=== PATIENT | female | born 1965 | race Caucasian/White ===

== ENCOUNTER → 2016-09-08 | Outpatient (CLI) | payer BC ==
[~2016-09-08] MED LIST: CRFUDL PO; CZR25 PO; LEVO100T7 PO; MULT-506 PO; PANT40TA PO
== END | disposition home or self-care (01) ==
LOC: C.LABSPEC 12:39
PROVIDERS: ATTEND Internal Medicine
DX: R31.9 Hematuria, unspecified (principal)

== ENCOUNTER → 2016-12-23 | Outpatient (CLI) | payer BC ==
--- NOTE | 2016-12-23 13:33 | MAMMOGRAPHY REPORT ---
UNILATERAL RIGHT DIGITAL DIAGNOSTIC MAMMOGRAM TOMOSYNTHESIS WITH CAD AND TARGETED RIGHT ULTRASOUND: 12/23/2016 CLINICAL HISTORY: The patient reports intermittent pain which radiates from the armpit to her nipple . She also reports a possible lump/thickening in the right breast. TECHNIQUE: Breast tomosynthesis in addition to standard 2D mammography was performed. Current study was also evaluated with a Computer Aided Detection (CAD) system. Right CC and MLO 2-D and tomosynt hesis images were obtained. COMPARISON: Comparison is made to exams dated: 07/14/2016 mammogram, 07/12/2015 mammogram, 07/11/20 14 mammogram, 07/10/2013 mammogram, 07/07/2012 mammogram, and 07/07/2011 mammogram - [facility]. BREAST COMPOSITION: The tissue of the right breast is heterogeneously dense, which may obscure smal l masses. FINDINGS: A scar marker gagnon the site of pain in the right upper outer quadrant. There are no johnie picious masses, calcifications, or areas of architectural distortion noted in the right breast. The re has been no significant interval change compared to prior exams. Nodular asymmetry in the right lateral breast seen on the cc view is stable dating back to at least the 2010 exam. Targeted ultrasound was performed of the area of pain pointed out by the patient, in the right axill merna region extending to the right upper outer quadrant and right subareolar region. Sonographically normal tissue is seen, without evidence of a mass or other suspicious sonographic abnormality. Tar geted ultrasound was performed of the area of the palpable lump pointed out by the patient, in the r ight breast at 10:00, approximately 7 cm from the nipple. No suspicious mass or other suspicious so nographic abnormalit is evident at this site. IMPRESSION: ACR BI-RADS CATEGORY 2: BENIGN, TARGETED ULTRASOUND ACR BI-RADS CATEGORY 2: BENIGN No suspicious mammographic or sonographic abnormality to explain intermittent right breast pain and possible right breast lump. There is no mammographic or targeted sonographic evidence of malignancy . Recommend clinical follow-up, and recommend routine bilateral screening mammograms which are due June 2017. The patient has been verbally notified of the results. Approximately 10% of breast cancers are not detected with mammography. A negative mammographic repor t should not delay biopsy if a clinically suggestive mass is present. Cori Santos M.D. ah/:12/23/2016 09:37:58 Clinical Laboratory Director: Sasha PATTON)(Jaycee), [facility] letter sent: Normal 1/2 BI-RADS Code: ACR BI-RADS Category 2: Benign Ultrasound BI-RADS: ACR BI-RADS Category 2: Benign
== END | disposition home or self-care (01) ==
LOC: C.MAMM 08:54
PROVIDERS: ATTEND Obstetrics & Gynecology
DX: N64.4 Mastodynia (principal)

== ENCOUNTER → 2017-03-26 | Outpatient (CLI) | payer BC | END | disposition home or self-care (01) | LOC: C.LABSPEC 16:42 | PROVIDERS: ATTEND Physician Assistant Medical | DX: R10.2 Pelvic and perineal pain (principal) ==

== ENCOUNTER → 2017-08-02 | Outpatient (CLI) | payer BC ==
--- NOTE | 2017-08-03 07:48 | MAMMOGRAPHY REPORT ---
BILATERAL DIGITAL SCREENING MAMMOGRAM TOMOSYNTHESIS WITH CAD: 08/02/2017 CLINICAL HISTORY: Routine screening. Patient has no complaints. TECHNIQUE: Breast tomosynthesis in addition to standard 2D mammography was performed. Current study was also evaluated with a Computer Aided Detection (CAD) system. COMPARISON: Comparison is made to exams dated: 12/23/2016 ultrasound, 12/23/2016 mammogram, 07/14/2016 m ammogram, 07/12/2015 mammogram, 07/11/2014 mammogram, and 07/07/2012 mammogram - [facility]. BREAST COMPOSITION: The tissue of both breasts is heterogeneously dense, which may obscure small mas ses. FINDINGS: The parenchymal pattern is unchanged. No developing mass, architectural distortion or clus ter of suspicious microcalcifications is seen in either breast. IMPRESSION: ACR BI-RADS CATEGORY 2: BENIGN There is no mammographic evidence of malignancy. A 1 year screening mammogram is recommended. The pa tient will receive written notification of the results. Approximately 10% of breast cancers are not detected with mammography. A negative mammographic report should not delay biopsy if a clinically suggestive mass is present. Silvana Candelario M.D. ay/:08/02/2017 08:57:01 Internal Consultant: Yajaira Alcaraz, [facility] letter sent: Normal 1/2 BI-RADS Code: ACR BI-RADS Category 2: Benign
== END | disposition home or self-care (01) ==
LOC: C.MAMM 08:32
PROVIDERS: ATTEND Obstetrics & Gynecology
DX: Z12.31 Encounter for screening mammogram for malignant neoplasm of breast (principal)

== ENCOUNTER → 2017-08-27 | Outpatient (CLI) | payer BC | END | disposition home or self-care (01) | LOC: C.PAPS 14:32 | PROVIDERS: ATTEND Obstetrics & Gynecology | DX: Z01.419 Encounter for gynecological examination (general) (routine) without abnormal findings (principal) ==

== ENCOUNTER 2017-10-23 08:51 | Emergency (ER) | payer BC ==
[~2017-10-23] VITALS: Ht 154.9 cm; Wt 72.3 kg
[2017-10-23 08:53] VITALS: TEMP 36.3; Ht 154.9 cm; Wt 72.3 kg
[2017-10-23] MEDS ORDERED: XYLOCAINE 1%/SOD BICARB 20 ML VIAL INFIL ONE (09:30)
--- NOTE | 2017-10-23 09:45 | DIAGNOSTIC IMAGING REPORT ---
HEAD WITHOUT CONTRAST (CT) CLINICAL HISTORY: 52 years-old Female presenting with fall in shower. TECHNIQUE: Multidetector CT imaging of the head was performed without the use of intravenous contrast. IV contrast: None. A dose lowering technique was used consistent with the principles of ALARA (as low as reasonably achievable). COMPARISON: Brain MR from 2009. CT DOSE (mGy.cm): The estimated cumulative dose is 919.[address] cervical spine. FINDINGS: Electrotype Molder topogram: Anterior cervical fusion hardware noted. Ventricles and sulci normal in size. Brain parenchyma normal in appearance with preserved huang-white differentiation. No mass effect or midline shift. No hemorrhage or acute territorial infarct. No extra-axial fluid collection. Paranasal sinuses and mastoid air cells clear. Calvarium intact. IMPRESSION: 1. No acute intracranial abnormality. Electronically signed by: Saulo Marte M.D. 10/23/2017 9:43 AM Dictated Date/Time: 10/23/2017 9:41 AM
--- NOTE | 2017-10-23 09:49 | DIAGNOSTIC IMAGING REPORT ---
CERVICAL SPINE W/O CLINICAL HISTORY: 52 years-old Female presenting with neck pain, injury of the left forehead, left eyebrow laceration, nasal bleed. TECHNIQUE: Multidetector CT of the cervical spine was performed without the use of intravenous contrast. IV contrast: None. A dose lowering technique was used consistent with the principles of ALARA (as low as reasonably achievable). COMPARISON: CT from 08/28/2014. CT DOSE (mGy.cm): The estimated cumulative dose is 919.88 mGy.cm. FINDINGS: Dipper And Drier topogram: Anterior cervical fusion hardware. Straightening of normal cervical lordosis likely positional. Postsurgical changes of anterior cervical discectomy and fusion of C6-7. No hardware complication. Osseous fusion across these levels is noted predominantly centrally. Remaining nonoperative vertebral bodies demonstrate normal height and alignment. Mild intervertebral disc height loss at C5-6 with a small disc osteophyte complex. No significant posterior bony spurring. No osseous neural foraminal narrowing. No acute fracture or malalignment. Lung apices clear. Paraspinal soft tissues within normal limits allowing for noncontrast technique. IMPRESSION: 1. No acute osseous injury of the cervical spine. 2. Postsurgical changes of anterior cervical discectomy and fusion of C6-7. Electronically signed by: Saulo Marte M.D. 10/23/2017 9:48 AM Dictated Date/Time: 10/23/2017 9:45 AM
--- NOTE | 2017-10-23 09:52 | DIAGNOSTIC IMAGING REPORT ---
FACIAL BONES-MXILLOFAC WITHOUT CLINICAL HISTORY: 52 years-old Female presenting with L infraorbital pain. TECHNIQUE: Multidetector CT of the face was performed without the use of intravenous contrast. IV contrast: None. A dose lowering technique was used consistent with the principles of ALARA (as low as reasonably achievable). COMPARISON: 01/25/2010. CT DOSE (mGy.cm): The estimated cumulative dose is 919.[address] cervical spine and CT head. FINDINGS: Fire Captain topogram: Anterior cervical fusion hardware. Paranasal sinuses and mastoid air cells clear. Orbits intact. Skull base intact. Temporomandibular joints and mandible intact. Nasal bones intact. Minimal rightward deviation of the bony nasal septum without evidence of fracture. Soft tissues of the face demonstrate minimal contusion and the lateral left periorbital region. Associated soft tissue emphysema in this region likely suggests the presence of a laceration. No subjacent osseous injury. Upper cervical spine normal. IMPRESSION: No acute osseous injury of the face. Electronically signed by: Saulo Marte M.D. 10/23/2017 9:51 AM Dictated Date/Time: 10/23/2017 9:48 AM
[2017-10-23] MEDS ORDERED: HYDROCODONE/ACETAMIN 5/325MG TAB PO PRN (10:00)
[2017-10-23] MEDS ORDERED: SUCR5SUS PO (10:30)
[2017-10-23 10:37] VITALS: BP 150/85; PULSE 61; O2SAT 98
--- NOTE | 2017-10-23 17:02 | EMERGENCY ROOM VISIT NOTE ---
ED Visit Note First contact with patient: 08:59 Chief complaint: Fall at home in bathtub. Left eyebrow laceration HPI: This 52-year-old white female presents for evaluation of a laceration in her left eyebrow. The patient was attempting to get in the bathtub this morning to take a shower. Her daughter had taken a bath last night with bubblebath. She slipped on the bathtub floor and fell onto her left side, striking her left face on the wall. She states there was a pop in her neck and now her neck is quite painful. She has a history of previous cervical spine surgery. Bleeding was controlled with pressure. She denies any numbness, tingling, or loss of consciousness. No nausea or vomiting. Her neck is painful to move. She denies any pain in her extremities. She has been ambulatory. No other complaints. Tetanus is unknown. Pain is 7/10. Her accompanies her today. Supplemental sheet was reviewed. Previous surgeries: Bilateral total hip arthroplasties, cholecystectomy Medical history: Significant for osteoarthritis, hypothyroidism, GERD Current Medications: Reviewed and found in patient's chart Allergies: Chlorhexidine, morphine, moxifloxacin, penicillin, Bactrim, adhesives Tetanus: Unknown Family History: Significant for osteoarthritis. Parents are living. Social History: Patient is . No tobacco use, no EtOH use. REVIEW OF SYSTEM: HEENT: No dizziness, visual problems, hearing loss, or tinnitus. There is no difficulty swallowing and no oral lesions are present. LYMPH: No adenopathy. PULMONARY: No cough, shortness of breath, sputum production or hemoptysis. CARDIOVASCULAR: No chest pain, palpitations, shortness of breath or peripheral edema. GASTROINTESTINAL: No diarrhea, constipation, nausea, vomiting, or abdominal pain. GENITOURINARY: No dysuria, frequency, urgency or nocturia. NEUROLOGIC: No weakness, muscle tenderness, epilepsy or history of neurological problems. MUSCULOSKELETAL: No history of joint tenderness/swelling. Positive history of arthritis and arthralgias. SKIN: No rashes or lesions. PSYCHIATRIC: No history of depression or mental illness. ENDOCRINE: No history of diabetes, thyroid disorders, or abnormal hair growth. Physical Exam: Vitals: Afebrile. Reviewed and filed in patient's chart. Mildly hypertensive. General: Well-developed, well-nourished, middle-aged white female, in no acute distress. Obvious discomfort. She is sitting on the bed. Alert and oriented. Skin: Warm and dry with good turgor. No rashes. No ecchymosis or erythema. The patient is not diaphoretic. No abrasions. The patient has a 2.5 cm laceration present in the left eyebrow. It is horizontal. No foreign material is visible. HEENT: Normocephalic atraumatic. Eyes PERRLA, EOMI. No conjunctiva or scleral injection. Ears TMs intact bilaterally with good light reflexes. No erythema or bulging. No hemotympanum. Canals are patent. Nares patent bilaterally without turbinate enlargement. No significant drainage. Dried epistaxis in the left nares. There is discomfort with palpation over the left inferior orbital bones. No palpable crepitus or defect. Oropharynx without erythema or exudate. Uvula midline, oral mucosa moist. No lesions present. Lymphatics are palpated without anterior or posterior chain enlargement or tenderness. Musculoskeletal: Patient has discomfort with palpation over the cervical spine and left paraspinal musculature. No pain with palpation over the lumbar or thoracic spine. No pain with palpation on the right side of her neck. Supple motion of the hips, knees, and ankles bilaterally. No indication for dislocation. Intact motor function of the upper extremities at the shoulders, elbows, and wrists. Symmetric strength. Neurologic: Gross sensation is intact across the upper and lower extremities by soft touch. CT scan imaging of the head, face, and cervical spine were obtained. These were reviewed by me and read by radiology. No evidence for acute fracture, intracranial bleed, or other abnormality. Hardware remains in place in her cervical spine. Impression: Fall into empty tub. 2.5 cm left eyebrow laceration. Left neck strain Procedure: Informed oral consent was obtained for repair. Left eyebrow was prepped with Betadine and draped with a sterile towel. Area was anesthetized using 4 mL 1% plain buffered lidocaine in a direct infiltration. Thorough inspection was performed. Wound was irrigated using normal sterile saline under jet spray lavage. Wound was closed using 5-0 nylon. 4 [id number]-[id number] sutures were placed. Excellent wound edge approximation was achieved. Hemostasis was achieved. Plan: Patient was educated regarding today's findings. Conservative care measures were discussed. Cleanse the wound daily with soap and water and reapply a small amount of bacitracin. Ice and elevate intermittently as needed for discomfort. Tylenol and ibuprofen every 6 hours as needed for pain. Wound care handout was provided. Sutures out in 6-8 days. She may shower. Avoid soaking or swimming for two weeks. Return to the ER for any acute changes or signs of infection. She was given a tablet of Viper 5 mg while in the ED. She understands that she may be more sore tomorrow than today. She was reassured that her imaging studies were normal. Her elevated BP is likely situational. She should have it rechecked by her PCP. She will also contact her PCP about her tetanus status. Problem List Medical Problems: (1) Cervical radiculopathy Status: Chronic (2) Facial abrasion Status: Resolved (3) GERD (gastroesophageal reflux disease) Status: Chronic (4) Herniated cervical disc Status: Resolved (5) Herniation of cervical intervertebral disc with radiculopathy Status: Resolved (6) Neck pain Status: Resolved (7) Spinal stenosis Status: Chronic Surgical Problems: (1) History of hip replacement Status: Resolved (2) Hx of cholecystectomy Status: Resolved Current/Historical Medications Scheduled Levothyroxine Sodium (Levothyroxine Sodium), 100 MCG PO QAM Losartan Potassium (Losartan Potassium), 25 MG PO QAM Multivitamin (Multivitamin), 1 TAB PO DAILY Pantoprazole (Protonix), 40 MG PO DAILY Sucralfate (Carafate), 1 GM PO ACHS Allergies Coded Allergies: Chlorhexidine (Verified Allergy, Intermediate, itching and erythema , ) Sulfamethoxazole w/Trimethoprim (Verified Allergy, Intermediate, rash/ conjunctivitis, 10/23/17) Adhesives (Verified Allergy, Unknown, blistering, 10/23/17) AFTER HIP SURGERY REACTION TO SURGICAL TAPE ON INCISION Penicillins (Verified Allergy, Unknown, SWELLING, RASH, conjunctivitis, and hives, 10/23/17) Morphine (Verified Adverse Reaction, Unknown, ITCHING, 10/23/17) Moxifloxacin (Unverified Adverse Reaction, Unknown, joint pain per cardio note , 10/23/17) Vital Signs Date Time Temp Pulse Resp B/P (MAP) Pulse Ox O2 Delivery O2 Flow Rate FiO2 10/23/17 10:37 61 18 150/85 98 Room Air 10/23/17 09:28 72 18 174/85 100 Room Air 10/23/17 09:03 69 18 167/99 100 Room Air 10/23/17 08:53 36.3 74 18 163/98 100 Room Air Medications Administered Medications (Trade) Dose Ordered Sig/Audra Route Start Time Stop Time Status Last Admin Dose Admin Acetaminophen/ Hydrocodone Bitart (Viper 5/325 Tab) 1 tab NOW PRN PO 10/23/17 10:00 10/23/17 11:06 DC 10/23/17 10:36 1 TAB Departure Information Impression Primary Impression: Neck muscle strain Additional Impressions: Fall in (into) shower or empty bathtub, initial encounter Left eyebrow laceration 2.5 cm Dispostion Home / Self-Care Condition [employer]IR Forms HOME CARE DOCUMENTATION FORM, MOTRIN USE, TYLENOL USE, WOUND CARE INSTRUCTIONS, IMPORTANT VISIT INFORMATION Patient Instructions My [facility] Additional Instructions Cleanse the wound daily with soap and water Avoid swimming or soaking for 2 weeks you may shower and wash your face Tylenol and Motrin every 6 hours as needed for discomfort Sutures out in 6-8 days Return to the ED for any acute changes or signs of infection Gentle stretching daily You may be more sore tomorrow than today Follow up with your PCP for any worsening symptoms or return to the ED Problem Qualifiers
== END 2017-10-23 10:53 | disposition home or self-care (01) ==
LOC: C.EDB 08:53 → C.EDA 10:53
DX: S01.112A Laceration without foreign body of left eyelid and periocular area, initial encounter (principal); S16.1XXA Strain of muscle, fascia and tendon at neck level, initial encounter; W18.2XXA Fall in (into) shower or empty bathtub, initial encounter; Y93.E1 Activity, personal bathing and showering; Y92.002 Bathroom of unspecified non-institutional (private) residence as the place of occurrence of the external cause; M19.90 Unspecified osteoarthritis, unspecified site; E03.9 Hypothyroidism, unspecified; K21.9 Gastro-esophageal reflux disease without esophagitis; Z96.643 Presence of artificial hip joint, bilateral; Z88.8 Allergy status to other drugs, medicaments and biological substances; Z88.6 Allergy status to analgesic agent; Z88.1 Allergy status to other antibiotic agents; Z88.0 Allergy status to penicillin; Z88.2 Allergy status to sulfonamides; Z91.048 Other nonmedicinal substance allergy status; Z82.69 Family history of other diseases of the musculoskeletal system and connective tissue

== ENCOUNTER → 2017-11-17 | Outpatient (CLI) | payer BC ==
[~2017-11-17] MED LIST changes: -CRFUDL PO; +SUCR5SUS PO
[2017-11-17 12:32] LABS: BASO % 0.7 %; BASO ABS # 0.03 K/uL (0-0.2); EOS % 2.7 %; EOS ABS # 0.11 K/uL (0-0.5); HEMATOCRIT 39.8 % (37-47); HEMOGLOBIN 13.3 g/dL (12.0-16.0); IG# 0.01 K/uL (0.00-0.02); LYMPH % 34.2 %; LYMPH ABS # 1.37 K/uL (1.2-3.4); MEAN CELL VOLUME 92.6 fL (80-100); MEAN CORPUSCULAR HEMOGLOBIN 30.9 pg (25-34); MEAN CORPUSCULAR HGB CONC 33.4 g/dl (32-36); MEAN PLATELET VOLUME 9.3 fL (7.4-10.4); MONO % 8.2 %; MONO ABS # 0.33 K/uL (0.11-0.59); NEUT ABS # 2.16 K/uL (1.4-6.5); PLATELET COUNT 206 K/uL (130-400); RED CELL DISTRIBUTION WIDTH CV 13.3 % (11.5-14.5); RED CELL DISTRIBUTION WIDTH SD 44.5 fL (36.4-46.3); WHITE BLOOD COUNT 4.01 K/uL (4.8-10.8)
[2017-11-17 13:17] LABS: BLOOD UREA NITROGEN 14 mg/dl (7-18); CARBON DIOXIDE 30 mmol/L (21-32); CHOLESTEROL 235 mg/dl (0-200); CREATININE 0.96 mg/dl (0.60-1.20); GLUCOSE 89 mg/dl (70-99); POTASSIUM 4.1 mmol/L (3.5-5.1); SODIUM 138 mmol/L (136-145)
[2017-11-17 13:27] LABS: LDL CHOLESTEROL CALCULATED 123 mg/dl
== END | disposition home or self-care (01) ==
LOC: C.LABBFT 07:59
PROVIDERS: ATTEND Internal Medicine
DX: I10 Essential (primary) hypertension (principal); E03.9 Hypothyroidism, unspecified; Z13.6 Encounter for screening for cardiovascular disorders; R53.83 Other fatigue

== ENCOUNTER → 2017-12-17 | Outpatient (CLI) | payer BC ==
[~2017-12-17] MED LIST changes: +GADAVIST IV PRN
--- NOTE | 2017-12-17 14:16 | ECHOCARDIOGRAM REPORT ---
*NOTICE TO RECEIVING [employer] AGENCY This information is strictly Confidential and protected under [place] law. [place] law prohibits you from making any further disclosure of this information unless further disclosure is expressly permitted by the written consent of the person to whom it pertains or is authorized by law. A general authorization for the release of medical or other information is not sufficient for this purpose. Hospital accepts no responsibility if the information is made available to any other person, INCLUDING THE PATIENT. Interpretation Summary * Name: JAIR NEAL Study Date: 12/17/2017 12:59 PM * Patient Location: [facility] HR: 62 * : 1965 (M/d/yyyy) Gender: Female Height: 61 in * Age: 52 yrs Ethnicity: CA Weight: 153 lb * Ordering Physician: ABEL LAND MD * Performed By: Rebeka Echols RDCS * * Reason For Study: NEUROLOGIC GAIT DISFUNCTION * BSA: 1.7 m2 * This was essentially a normal study. * -- Conclusions -- * Left ventricular systolic function is normal. * Normal diastolic function Procedure Details * A complete two-dimensional transthoracic echocardiogram was performed (2D, M-mode, Doppler and color flow Doppler). Left Ventricle * The left ventricle is normal in size. * There is normal left ventricular wall thickness. * Ejection Fraction = 65-70%. * Left ventricular systolic function is normal. * Normal diastolic function * The left ventricular wall motion is normal. Right Ventricle * The right ventricle is normal in size and function. * The right ventricular systolic function is reduced as assessed by tricuspid annular plane systolic excursion (TAPSE) (TAPSE <1.6 cm). Atria * The left atrial size is normal. * Right atrial size is normal. Mitral Valve * The mitral valve leaflets appear normal. There is no evidence of stenosis, fluttering, or prolapse. * There is no mitral regurgitation noted. Tricuspid Valve * The tricuspid valve is not well visualized, but is grossly normal. * Significant tricuspid regurgitation is absent. Aortic Valve * The aortic valve is normal in structure and function. * No hemodynamically significant valvular aortic stenosis. * There is no significant aortic regurgitation. Pulmonic Valve * The pulmonic valve is not well seen, but is grossly normal. Pericardium/Pleural * There is no pericardial effusion. Great Vessels * Normal inferior vena cava diameter and respiratory variation suggests normal central venous pressure. MMode 2D Measurements and Calculations IVSd 0.97 cm IVSs 1.2 cm LVIDd 4.2 cm LVIDs 2.5 cm LVPWd 0.78 cm LVPWs 1.8 cm IVS/LVPW 1.2 FS 41.7 % EDV(Teich) 79.8 ml ESV(Teich) 21.5 ml EF(Teich) 73.0 % EDV(cubed) 75.5 ml ESV(cubed) 15.0 ml EF(cubed) 80.2 % % IVS thick 19.8 % % LVPW thick 125.9 % LV mass(C)d 116.0 grams LV mass(C)dI 68.8 grams/m\S\2 LV mass(C)s 119.1 grams LV mass(C)sI 70.6 grams/m\S\2 SV(Teich) 58.3 ml SI(Teich) 34.6 ml/m\S\2 SV(cubed) 60.6 ml SI(cubed) 35.9 ml/m\S\2 ACS 1.6 cm LA dimension 3.5 cm asc Aorta Diam 3.2 cm LVOT diam 1.6 cm LVOT area 2.0 cm\S\2 LVAd ap4 22.3 cm\S\2 LVLd ap4 6.8 cm EDV(MOD-sp4) 61.7 ml EDV(sp4-el) 62.0 ml LVAs ap4 10.5 cm\S\2 LVLs ap4 4.9 cm ESV(MOD-sp4) 18.5 ml ESV(sp4-el) 19.1 ml EF(MOD-sp4) 70.1 % EF(sp4-el) 69.2 % LVAd ap2 23.9 cm\S\2 LVLd ap2 7.1 cm EDV(MOD-sp2) 68.5 ml EDV(sp2-el) 68.2 ml LVAs ap2 11.5 cm\S\2 LVLs ap2 5.4 cm ESV(MOD-sp2) 21.3 ml ESV(sp2-el) 21.0 ml EF(MOD-sp2) 68.9 % EF(sp2-el) 69.2 % LVLd %diff 4.3 % EDV(MOD-bp) 66.2 ml LVLs %diff 10.0 % ESV(MOD-bp) 20.4 ml EF(MOD-bp) 69.1 % SV(MOD-sp4) 43.3 ml SI(MOD-sp4) 25.7 ml/m\S\2 SV(MOD-sp2) 47.2 ml SI(MOD-sp2) 28.0 ml/m\S\2 SV(MOD-bp) 45.8 ml SI(MOD-bp) 27.1 ml/m\S\2 SV(sp4-el) 42.9 ml SI(sp4-el) 25.5 ml/m\S\2 SV(sp2-el) 47.2 ml SI(sp2-el) 28.0 ml/m\S\2 Doppler Measurements and Calculations MV E max sonam 109.5 cm/sec MV A max sonam 63.1 cm/sec MV E/A 1.7 MV dec time 0.21 sec Ao V2 max 133.7 cm/sec Ao max PG 7.2 mmHg Ao max PG (full) -0.77 mmHg MAY(V,A) 2.1 cm\S\2 MAY(V,D) 2.1 cm\S\2 LV V1 max PG 7.9 mmHg LV V1 max 140.7 cm/sec PA V2 max 77.1 cm/sec PA max PG 2.4 mmHg
--- NOTE | 2017-12-17 14:57 | DIAGNOSTIC IMAGING REPORT ---
BRAIN COMBO CLINICAL HISTORY: R26.9 Neurologic gait dysfunction mental status change COMPARISON STUDY: 06/04/2010 TECHNIQUE: Utilizing a 1.5 Gunjan magnet and dedicated coil, multiplanar, multiecho imaging of the brain was performed pre and postcontrast administration. IV administration of 7 mL of Gadavist contrast was uneventful. FINDINGS: Diffusion images are negative for an acute ischemic event. Ventricular system is midline. Signal characteristics indicate a small focus of increased signal within the right temporal lobe unchanged from the prior study. Current study shows a small additional focus of increased signal right anterior periventricular region of the anterior lobe right cerebral hemisphere. No significant additional foci of small vessel ischemic change are present. The ventricular system again is midline. Postcontrast images are considered negative for an enhancing lesion. The sella and parasellar regions are unremarkable. The internal auditory canals are symmetric. IMPRESSION: 1. Small focus of chronic small vessel change anterior right frontal lobe new from the prior exam. 2. Small pre-existing focus of increased signal right temporal lobe. 3. These findings suggest mild chronic small vessel change of aging. 4. No abnormal postcontrast enhancement. The above report was generated using voice recognition software. It may contain grammatical, syntax or spelling errors. Electronically signed by: Boris Haque M.D. 12/17/2017 2:55 PM Dictated Date/Time: 12/17/2017 2:49 PM
== END | disposition home or self-care (01) ==
LOC: C.CPL 12:27
PROVIDERS: ATTEND Internal Medicine
DX: R26.9 Unspecified abnormalities of gait and mobility (principal); I67.9 Cerebrovascular disease, unspecified

== ENCOUNTER 2018-04-16 14:22 | Emergency (ER) | payer BC, OTHER ==
[~2018-04-16] VITALS: Ht 157.5 cm; Wt 71.5 kg
[~2018-04-16 14:22] MED LIST changes: -CZR25 PO; -GADAVIST IV PRN; -LEVO100T7 PO
[2018-04-16 14:39] VITALS: TEMP 37.2; Ht 157.5 cm; Wt 71.5 kg
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
[2018-04-16] MEDS ORDERED: ACETAMINOPHEN 500 MG TAB PO STA (15:58)
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
[2018-04-16] MEDS ORDERED: ASTN NAE (16:30)
[2018-04-16] MEDS ORDERED: RANI150T2 PO (16:30)
[2018-04-16] MEDS ORDERED: ATOR-22 PO (16:30)
[2018-04-16] MEDS ORDERED: FLNIN/ NAE (16:30)
[2018-04-16] MEDS ORDERED: ASPI81TA28 PO (16:32)
[2018-04-16] MEDS ORDERED: CETI10TA84 PO (16:32)
[2018-04-16] MEDS ORDERED: CHOL100027 PO (16:32)
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
[2018-04-16 16:51] VITALS: BP 118/69; PULSE 67; O2SAT 97
[2018-04-16] MEDS ORDERED: CZR25 PO (18:16)
[2018-04-16] MEDS ORDERED: LEVO100T7 PO (18:16)
== END 2018-04-16 16:51 | disposition home or self-care (01) ==
LOC: C.EDB 14:23
DX: S80.11XA Contusion of right lower leg, initial encounter (principal); S80.12XA Contusion of left lower leg, initial encounter; S16.1XXA Strain of muscle, fascia and tendon at neck level, initial encounter; V43.54XA Car driver injured in collision with van in traffic accident, initial encounter; Y92.488 Other paved roadways as the place of occurrence of the external cause; S50.12XA Contusion of left forearm, initial encounter; S60.021A Contusion of right index finger without damage to nail, initial encounter; I83.93 Asymptomatic varicose veins of bilateral lower extremities; M50.10 Cervical disc disorder with radiculopathy, unspecified cervical region; Z96.643 Presence of artificial hip joint, bilateral; Z79.82 Long term (current) use of aspirin; Z79.899 Other long term (current) drug therapy; Z88.8 Allergy status to other drugs, medicaments and biological substances; Z88.0 Allergy status to penicillin; Z88.1 Allergy status to other antibiotic agents; Z88.5 Allergy status to narcotic agent; Z91.048 Other nonmedicinal substance allergy status